=== PATIENT | female | born 1975 | race Caucasian/White ===

== ENCOUNTER 2019-04-22 08:39 | Emergency (ER) | payer OTHER, MEDICAID, SELFPAY ==
[2019-04-22 08:41] VITALS: BP 125/90; PULSE 90; RESP 18; TEMP 36.6; O2SAT 100; BMI 36.4
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
[2019-04-22] MEDS: ketorolac 60 mg/2 mL INJ IM (09:07)
[2019-04-22 09:08] VITALS: BP 136/76; PULSE 80; RESP 17; O2SAT 100
--- NOTE | 2019-04-22 09:13 | PC.NURSE ---
Pt to XR
[2019-04-22 09:49] LABS: Basophils % 0.5 %; Eosinophils # 0.2 10^3/uL (0.0-0.8); Eosinophils % 2.2 %; Hematocrit 38.3 % (37.0-47.0); Hemoglobin 11.9 g/dL (11.5-15.3); Lymphocytes # 2.3 10^3/uL (0.8-4.8); Lymphocytes % 28.5 %; Mean Corpuscular HGB Conc 31.1 g/dL (30.0-36.0); Mean Corpuscular Hemoglobin 25.5 pg (28.0-34.0); Mean Corpuscular Volume 82.2 fL (81-99); Monocytes # 0.3 10^3/uL (0.2-0.9); Monocytes % 3.9 %; Neutrophils # 5.3 10^3/uL (1.8-7.7); Neutrophils % 64.7 %; Nucleated Red Blood Cells % 0 %; Platelet Count 297 10^3/cmm (130-400); Red Blood Count 4.66 10^6/uL (4.1-5.3); Red Cell Distribution Width 15.5 % (12.1-15.1); White Blood Count 8.2 10^3/uL (4.0-10.0)
[2019-04-22 10:01] LABS: Anion Gap 15.1 (5-19); Blood Urea Nitrogen 9 mg/dL (6-20); Calcium 9.3 mg/dL (8.5-10.5); Carbon Dioxide 23 mmol/L (22-29); Chloride 106 mmol/L (98-107); Glucose 152 mg/dL (65-115); Osmolality Calculated 289 mOsm/kg (285-295); Potassium 4.1 mmol/L (3.5-5.1); Sodium 140 mmol/L (136-145)
[2019-04-22 10:53] VITALS: BP 128/68; PULSE 78; RESP 18; O2SAT 100
== END 2019-04-22 10:54 | disposition home or self-care (01) ==
PROVIDERS: Emergency Provider Family Medicine
DX: S39.012A Strain of muscle, fascia and tendon of lower back, initial encounter (principal); V43.62XA Car passenger injured in collision with other type car in traffic accident, initial encounter; Y92.410 Unspecified street and highway as the place of occurrence of the external cause; M48.061 Spinal stenosis, lumbar region without neurogenic claudication
CPT/HCPCS: 12345; 36415; 72100; 80048; 85025; 96372; 99281; 99283; J1885

== ENCOUNTER → 2019-06-30 14:33 | Outpatient (BNVA) | payer MEDICAID, SELFPAY | PROVIDERS: Visit Provider Specialist | DX: F44.5 Conversion disorder with seizures or convulsions (principal); I69.320 Aphasia following cerebral infarction; G12.29 Other motor neuron disease | CPT/HCPCS: 99213 ==